=== PATIENT | female | born 1980 | race Caucasian/White ===

== ENCOUNTER 2017-01-19 16:48 | Emergency (ER) | payer OTHER ==
[~2017-01-19] VITALS: Wt 100.0 kg
[~2017-01-19 16:48] MED LIST: HTN MED; HYDR-3498 PO; HYDR-906 PO; ONDA4TAB14 PO; ZOF8 PO
[2017-01-19 18:00] LABS: URINE BLOOD (Dip) POC Negative (NEGATIVE)
[2017-01-19] MEDS ORDERED: IBUPROFEN 600 MG TAB PO ONE (18:00)
[2017-01-19] MEDS ORDERED: HYDROCODONE/APAP (5/325) TAB PO ONE (18:00)
--- NOTE | 2017-01-19 18:16 | RADRPT ---
PROCEDURE: CT head CLINICAL INDICATION: Headaches TECHNIQUE: Contiguous 2.5 mm axial images were obtained from the vertex to the skull base. No int ravenous contrast was administered. The calculated dose length product (DLP) = 601.98 mGy-cm. The CTDlvol = 42.06 mGy. One or more of the following dose reduction techniques were used: Automated e xposure control, adjustment of the mA and or KV according to patient size, or use of iterative recon struction technique. COMPARISON: None FINDINGS: There is no evidence of acute intracranial hemorrhage or acute territorial infarct. No mass or mass effect is seen on this noncontrast study. The ventricles and cisterns are normal in size and confi guration. The luo-white matter differentiation is within normal limits. The visualized paranasal sinuses are normally aerated. The bony calvarium is unremarkable IMPRESSION: Unremarkable unenhanced CT of the brain RPTAT: HH .Martín Wade MD, Date Time Electronically viewed and signed by .Martín Wade MD, MD on 01/19/2017 18:15 .W/
[2017-01-19] MEDS ORDERED: IBUP-1542 PO (18:25)
[2017-01-19] MEDS ORDERED: BUTA1CAP38 PO (18:25)
--- NOTE | 2017-01-19 18:28 | ERD ---
ER Documentation Chief Complaint Date/Time DATE: 01/19/17 TIME: 18:26 Chief Complaint R SIDED HEADACHE X 1 MONTH HPI This 36-year-old female complains of a headache for last month. Primarily on the right side in the temporal area and also on the upper neck area. She has a history of trauma. She states the pain started after the loss of her . She denies any fevers, visual changes, weakness, bowel or bladder incontinence, trauma. ROS All systems reviewed and are negative except as per history of present illness. Medications Home Meds Active Scripts Gycosweuli-Zdwnqrvkrftto-Gpttkelg* (Fioricet*) 50-300-40 Mg Capsule, 1 CAP PO Q4H Y for PAIN, #18 CAP Prov:BHARATI IVERSON MD 01/19/17 Ibuprofen* (Motrin*) 600 Mg Tab, 600 MG PO Q6, #20 TAB Prov:BHARATI IVERSON MD 01/19/17 Hydrocodone/Acetaminophen ([place] 5-325 Tablet) 1 Each Tablet, 1 EACH PO Q4, #7 TAB Prov:DENNY CULVER PA-C 09/25/16 Ondansetron (Ondansetron Odt) 4 Mg Tab.rapdis, 4 MG PO Q6H Y for NAUSEA AND/OR VOMITING, #14 TAB Prov:DENNY CULVER PA-C 09/25/16 Hydrocodone Bit-Acetaminophen* ([place]*) 5-325 Mg Tab, 1 TAB PO Q6 Y for PAIN, # 7 TAB Prov:BRYCE SORIA PA-C 04/22/15 Ondansetron Hcl* (Zofran* ODT) 8 mg -ODT Tab.disper, 8 MG PO Q6 Y for NAUSEA AND /OR VOMITING, #10 TAB Prov:BRYCE SORIA PA-C 04/22/15 Reported Medications [Htn Med] No Conflict Check 06/25/11 Allergies Allergies: Coded Allergies: No Known Allergy (Verified , 09/25/16) PMhx/Soc History of Surgery: Yes (MANJU) Hx Miscellaneous Medical Probl: No (DENIES PMH) Hx Alcohol Use: No Hx Substance Use: No Hx Tobacco Use: No Physical Exam Vitals Vital Signs Date Time Temp Pulse Resp B/P Pulse Ox O2 Delivery O2 Flow Rate FiO2 01/19/17 16:50 98.0 111 18 161/101 99 Physical Exam Const: [] Alert, [id number]. Head: Atraumatic. There is reproducible headache primarily on the right side of the face and right hoahaoism. There is no pulsatile masses. Eyes: Normal Conjunctiva ENT: Normal External Ears, Nose and Mouth. Neck: Full range of motion..~ No meningismus.. There is tenderness in the right C2-C3 paraspinous muscles. Resp: Clear to auscultation bilaterally Cardio: Regular rate and rhythm, no murmurs Abd: Soft, non tender, non distended. Normal bowel sounds Skin: No petechiae or rashes Back: No midline or flank tenderness Ext: No cyanosis, or edema Neur: Awake and alert. Eyes are PERRLA and extraocular movements intact. No appreciable focal neurologic deficits. Normal gait. Psych: Normal Mood and Affect Results 24 hrs Laboratory Tests Test 01/19/17 18:03 Bedside Urine Blood Negative Bedside Urine Glucose (UA) Negative Bedside Urine Ketones (LAB) Negative Bedside Urine Leukocyte Esterase (L Negative Bedside Urine Nitrite (LAB) Negative Bedside Urine Protein (LAB) Negative Bedside Urine pH (LAB) 5.0 Current Medications Medications (Trade) Dose Ordered Sig/Rell Route PRN Reason Start Time Stop Time Status Last Admin Dose Admin Acetaminophen/ Hydrocodone Bitart ([place] (5/325)) 1 tab ONCE ONCE PO 01/19/17 18:00 01/19/17 18:01 DC 01/19/17 17:55 Ibuprofen (Motrin) 600 mg ONCE ONCE PO 01/19/17 18:00 01/19/17 18:01 DC 01/19/17 17:55 Procedures/MDM Given the headache of uncertain etiology CT brain was performed which is read as normal by the radiologist. Patient was given [place] 5 mg of mouth and ibuprofen. Patient has headache of uncertain etiology without signs or symptoms to suggest internal bleeding, mass-effect, meningitis, temporal arteritis, additional causes of headache. She will treated the course of Fioricet and ibuprofen and further observation at home and instructed to follow- up with primary care doctor. The patient was stable with no new complaints during the ER course. Clinically, there is no current evidence to suggest meningitis, sepsis, acute abdomen, pneumonia, acute coronary syndrome, pulmonary embolism, or any other emergent condition appearing to require further evaluation or hospitalization. The patient should certainly return for any new or worsening symptoms per the aftercare instructions. They should otherwise follow-up with her primary care doctor for reevaluation this week. Departure Diagnosis: Primary Impression: Headache Headache type: unspecified Headache chronicity pattern: unspecified pattern Intractability: not intractable Qualified Code: R51 - Nonintractable headache, unspecified chronicity pattern, unspecified headache type Condition: Stable Patient Instructions: Headache, Unspecified Referrals: [facility] YOU HAVE RECEIVED A MEDICAL SCREENING EXAM AND THE RESULTS INDICATE THAT YOU DO NOT HAVE A CONDITION THAT REQUIRES URGENT TREATMENT IN THE EMERGENCY DEPARTMENT. FURTHER EVALUATION AND TREATMENT OF YOUR CONDITION CAN WAIT UNTIL YOU ARE SEEN IN YOUR DOCTORS OFFICE WITHIN THE NEXT 1-2 DAYS. IT IS YOUR RESPONSIBILITY TO MAKE AN APPOINTMENT FOR FOLOW-UP CARE. IF YOU HAVE A PRIMARY DOCTOR --you should call your primary doctor and schedule an appointment IF YOU DO NOT HAVE A PRIMARY DOCTOR YOU CAN CALL OUR PHYSICIAN REFERRAL HOTLINE AT IF YOU CAN NOT AFFORD TO SEE A PHYSICIAN YOU CAN CHOSE FROM THE FOLLOWING FORMERLY [facility] [address] [facility]. [facility] [address] [facility] [address] [facility] [address] [facility] [facility] [address] [facility]. [facility] [address]. [facility]. [address] Additional Instructions: CT read as normal. Suspect tension headache. Recheck with primary doctor possibly neurologist for persistent headaches. Recheck otherwise for fevers, new or worsening symptoms. BHARATI IVERSON MD Jan 19, 2017 18:28
[2017-01-19 19:58] VITALS: BP 172/108; PULSE 89; RESP 20; TEMP 98.4
== END 2017-01-19 21:06 | disposition home or self-care (01) ==
LOC: FTE 16:48
DX: R51 Headache (principal)
CPT/HCPCS: 70450; 81003; Z7502; Z7610

== ENCOUNTER 2017-10-29 00:16 | Emergency (ER) | payer OTHER ==
[~2017-10-29] VITALS: Ht 152.4 cm; Wt 85.0 kg
[~2017-10-29 00:16] MED LIST changes: +BUTA1CAP38 PO; +IBUP-1542 PO
[2017-10-29 00:18] VITALS: Ht 152.4 cm; Wt 85.0 kg
[2017-10-29] MEDS ORDERED: HYDROmorphONE 1 MG/ML SYG IM STA (01:10)
--- NOTE | 2017-10-29 01:55 | RADRPT ---
PROCEDURE: XR Left Knee. CLINICAL INDICATION: 78 of pain with standing TECHNIQUE: Three views of the left knee are available for review. COMPARISON: None available FINDINGS: There is no fracture. Joint relationships are maintained. Patella is unremarkable. Bone mineraliza tion is within normal limits. Soft tissues are unremarkable. IMPRESSION: 1. Unremarkable left knee x-ray series. 2. No acute fracture or dislocation is seen. RPTAT: [facility]VK .Aaron Lozano MD, MD Date Time Electronically viewed and signed by .Aaron Lozano MD, on 10/29/2017 01:55 .K/
[2017-10-29] MEDS ORDERED: HYDR-906 PO (02:21)
[2017-10-29] MEDS ORDERED: IBUP-1542 PO (02:21)
--- NOTE | 2017-10-29 02:22 | ERD ---
ER Documentation Chief Complaint Chief Complaint Pt felt "pop" in L knee now unable to bear weight or bend HPI 37-year-old female presenting with left knee pain with acute onset. She states she was sitting on the curb and had been feeling some left knee pain today. When she stood up from the seated position, she felt a pop in her left knee and was unable to bear weight after this. She states the pain is aching, sharp, in the center of her knee, worse with trying to bend her knee. No associated numbness, tingling, or weakness. ROS All systems reviewed and are negative except as per history of present illness. Medications Home Meds Active Scripts Hydrocodone/Acetaminophen ([place] 5-325 Tablet) 1 Each Tablet, 1 TAB PO Q6H Y for PAIN, #7 TAB Prov:CARON ELLIS MD 10/29/17 Ibuprofen* (Motrin*) 600 Mg Tab, 600 MG PO Q6H Y for PAIN AND OR ELEVATED TEMP, #30 TAB Prov:CARON ELLIS MD 10/29/17 Coicpoewlh-Fbjwcwqmsajei-Ubyezvfj* (Fioricet*) 50-300-40 Mg Capsule, 1 CAP PO Q4H Y for PAIN, #18 CAP Prov:BHARATI IVERSON MD 01/19/17 Ibuprofen* (Motrin*) 600 Mg Tab, 600 MG PO Q6, #20 TAB Prov:BHARATI IVERSON MD 01/19/17 Hydrocodone/Acetaminophen ([place] 5-325 Tablet) 1 Each Tablet, 1 EACH PO Q4, #7 TAB Prov:DENNY CULVER PA-C 09/25/16 Ondansetron (Ondansetron Odt) 4 Mg Tab.rapdis, 4 MG PO Q6H Y for NAUSEA AND/OR VOMITING, #14 TAB Prov:DENNY CULVER PA-C 09/25/16 Hydrocodone Bit-Acetaminophen* ([place]*) 5-325 Mg Tab, 1 TAB PO Q6 Y for PAIN, # 7 TAB Prov:BRYCE SORIA PA-C 04/22/15 Ondansetron Hcl* (Zofran* ODT) 8 mg -ODT Tab.disper, 8 MG PO Q6 Y for NAUSEA AND /OR VOMITING, #10 TAB Prov:BRYCE SORIA PA-C 04/22/15 Reported Medications [Htn Med] No Conflict Check 06/25/11 Allergies Allergies: Coded Allergies: No Known Allergy (Verified , 09/25/16) PMhx/Soc History of Surgery: Yes (MANJU) Hx Miscellaneous Medical Probl: Yes (HTN, hypothyroidism) Hx Alcohol Use: No Hx Substance Use: No Hx Tobacco Use: No Smoking Status: Never smoker FmHx Family History: No diabetes Physical Exam Vitals Vital Signs Date Time Temp Pulse Resp B/P Pulse Ox O2 Delivery O2 Flow Rate FiO2 10/29/17 02:54 98.4 78 16 134/78 99 Room Air 10/29/17 00:18 98.3 96 24 161/103 99 Physical Exam Const:. well appearing, mild distress secondary to pain Head: Atraumatic Resp: Clear to auscultation bilaterally Cardio: Regular rate and rhythm, no murmurs Abd: Soft, non tender, non distended. Normal bowel sounds Skin: No petechiae or rashes Back: No midline or flank tenderness Ext: No cyanosis, or edema. Left knee with diffuse tenderness of the joint without any obvious effusion or deformity. Limited range of motion at the knee secondary to severe pain. 2+ DP and PT pulses distally. Hip, ankle, and foot exam normal. Neur: Awake and alert. Antalgic gait Psych: Normal Mood and Affect Results 24 hrs Current Medications Medications (Trade) Dose Ordered Sig/Rell Route PRN Reason Start Time Stop Time Status Last Admin Dose Admin Hydromorphone HCl (Dilaudid) 1 mg ONCE STAT IM 10/29/17 01:10 10/29/17 01:12 DC 10/29/17 01:16 Procedures/MDM X-ray of left knee shows no acute abnormalities MDM Patient is presenting with acute onset left knee pain. Exam is limited secondary to her pain. There is no obvious deformities. X-ray does not show evidence of dislocation or acute fracture. I do suspect possible ligamentous injury. I did recommend an outpatient MRI which does not need to be done today. Patient was placed in a knee immobilizer and given crutches. She is weightbearing as tolerated. She was prescribed [place] for severe pain. Patient is agreeable to the discharge plan. Return precautions discussed. Departure Diagnosis: Primary Impression: Knee injury Encounter type: initial encounter Laterality: left Qualified Code: S89.92XA - Injury of left knee, initial encounter Condition: Stable Patient Instructions: Knee Pain, Uncertain Cause Referrals: NO PRIMARY,CARE PHYSICIAN (PCP) Additional Instructions: Make an appointment with your primary care doctor within the next week. You will likely need an outpatient MRI if your pain continues. You can put weight on your knee as tolerated in the meantime. CARON ELLIS MD Oct 29, 2017 02:22
[2017-10-29 02:54] VITALS: BP 134/78; PULSE 78; RESP 16; TEMP 98.4
== END 2017-10-29 02:56 | disposition home or self-care (01) ==
LOC: E/R 00:16
DX: S89.92XA Unspecified injury of left lower leg, initial encounter (principal); I10 Essential (primary) hypertension; E03.9 Hypothyroidism, unspecified; X50.9XXA Other and unspecified overexertion or strenuous movements or postures, initial encounter; Y92.9 Unspecified place or not applicable
CPT/HCPCS: 29505; 73562; 96372; J1170; Z7502

== ENCOUNTER 2018-04-28 11:48 | Emergency (ER) | END 2018-04-28 17:52 | disposition home or self-care (01) ==

== ENCOUNTER 2018-05-03 12:46 | Emergency (ER) | END 2018-05-03 15:44 | disposition home or self-care (01) ==

== ENCOUNTER 2018-09-16 20:20 | Emergency (ER) | END 2018-09-16 23:52 | disposition home or self-care (01) ==

== ENCOUNTER 2019-01-19 18:38 | Emergency (ER) | payer OTHER ==
[~2019-01-19] VITALS: Ht 152.4 cm; Wt 102.3 kg
[~2019-01-19 18:38] MED LIST changes: +AMLO-147 PO; -BUTA1CAP38 PO; +DIAZ5TAB PO; -HTN MED; -HYDR-3498 PO; +HYDR-3980 PO; -HYDR-906 PO; -IBUP-1542 PO; +IBUP800T48 PO; +LEVO88TA3 PO; +LOSA100T15 PO; -ZOF8 PO
[2019-01-19 18:45] VITALS: Ht 152.4 cm; Wt 102.3 kg
--- NOTE | 2019-01-19 19:08 | ERD ---
ER Documentation Chief Complaint Chief Complaint BIB RA FROM WORK W/ C/O DIZZINESS, RT ARM NUMBNESS AND TINGLING, HX TIA HPI 38-year-old female history of hypertension, intracerebral aneurysm and TIA's presents to the ED complaining of acute onset of dizziness and right arm numbness and while at work. Denies headache, visual changes or focal weakness. No facial droop, difficulty speaking or leg weakness or numbness. No chest pain, palpitations or shortness of breath. No abdominal pain, nausea vomiting. No fevers or chills. ROS All systems reviewed and are negative except as per history of present illness. Medications Home Meds Reported Medications Levothyroxine Sodium* (Levothyroxine Sodium*) 88 Mcg Tablet, 88 MCG PO BEFORE BREAKFAST, #30 TAB 01/19/19 Amlodipine Besylate* (Norvasc*) 5 Mg Tablet, 5 MG PO DAILY, TAB 01/19/19 Discontinued Reported Medications Amlodipine Besylate* (Amlodipine Besylate*) 10 Mg Tablet, 10 MG PO DAILY, #30 TAB 09/16/18 Losartan Potassium* (Losartan Potassium*) 100 Mg Tablet, 100 MG PO DAILY, TAB 04/28/18 Levothyroxine Sodium* (Levothyroxine Sodium*) 88 Mcg Tablet, 88 MCG PO BEFORE BREAKFAST, #30 TAB 04/28/18 Discontinued Scripts Ibuprofen* (Motrin*) 800 Mg Tab, 800 MG PO Q6H PRN for PAIN AND OR ELEVATED TEMP, #30 TAB Prov:JAZMYNE REDDING MD 09/16/18 Ondansetron (Ondansetron Odt) 4 Mg Tab.rapdis, 4 MG PO Q6H PRN for NAUSEA AND/OR VOMITING, #10 TAB Prov:JAZMYNE REDDING MD 09/16/18 Diazepam* (Valium*) 5 Mg Tablet, 5 MG PO Q8 PRN for MUSCLE SPASMS, #10 TAB Prov:JAZMYNE REDDING MD 09/16/18 Hydrocodone/Acetaminophen ([place] 10-325 Tablet) 1 Each Tablet, 1 TAB PO Q6H PRN for PAIN, #7 TAB Prov:JAZMYNE REDDING MD 09/16/18 Allergies Allergies: Coded Allergies: No Known Allergy (Verified , 01/19/19) PMhx/Soc Reviewed in chart. As per HPI. History of Surgery: Yes (MANJU) Anesthesia Reaction: No Hx Neurological Disorder: Yes (CVA) Hx Respiratory Disorders: No Hx Cardiac Disorders: Yes (HTN) Hx Miscellaneous Medical Probl: Yes (hypothyroidism, DM) Hx Alcohol Use: No Hx Substance Use: No Hx Tobacco Use: No FmHx No stroke, subarachnoid hemorrhage or cancer Physical Exam Vitals Vital Signs Date Temp Pulse Resp B/P (MAP) Pulse Ox O2 O2 Flow FiO2 Time Delivery Rate 01/19/19 97.9 88 17 147/91 100 Room Air 23:55 (109) 01/19/19 78 11 165/108 100 Room Air 22:26 (127) 01/19/19 98.3 83 15 149/103 100 18:45 (118) Physical Exam Const: Moderate distress, anxious. Head: Atraumatic Eyes: Normal Conjunctiva. Pupils equal reactive to light, extraocular movements are intact. No gaze preference. No papilledema appreciated. ENT: Normal External Ears, Nose and Mouth. Neck: Full range of motion. Carotids 2+ bilaterally without bruits. Resp: Clear to auscultation bilaterally Cardio: Regular rate and rhythm, no murmurs Abd: Soft, obese, non tender, non distended. No masses. No rebound or guarding. Normal bowel sounds Skin: No petechiae or rashes Back: No midline or flank tenderness Ext: No cyanosis, or edema. Pulses 4+ in all extremities. Neur: Awake and alert. Oriented. Cranial nerves II through XII are grossly intact. Visual peters are normal. Decreased sensation right upper extremity below the shoulder. Difficulty raising her right arm no pronator drift when assisted with raising and complains of crampy pain in the triceps muscle. Motor strength in all upper extremities is 5/5. Plantar reflexes are downgoing. Psych: Patient appears anxious but not depressed. Result Diagram: 01/19/19191401/19/191914 Results 24 hrs Laboratory Tests Test 01/19/19 19:15 White Blood Count 9.4 10^3/ul Red Blood Count 4.19 10^6/ul Hemoglobin 12.8 g/dl Hematocrit 37.7 % Mean Corpuscular Volume 90.0 fl Mean Corpuscular Hemoglobin 30.5 pg Mean Corpuscular Hemoglobin Concent 34.0 g/dl Red Cell Distribution Width 11.9 % Platelet Count 357 10^3/UL Mean Platelet Volume 8.9 fl Immature Granulocytes % 1.000 % Neutrophils % 72.1 % Lymphocytes % 21.4 % Monocytes % 4.5 % Eosinophils % 0.7 % Basophils % 0.3 % Nucleated Red Blood Cells % 0.0 /100WBC Immature Granulocytes # 0.090 10^3/ul Neutrophils # 6.8 10^3/ul Lymphocytes # 2.0 10^3/ul Monocytes # 0.4 10^3/ul Eosinophils # 0.1 10^3/ul Basophils # 0.0 10^3/ul Nucleated Red Blood Cells # 0.0 10^3/ul Prothrombin Time 11.9 Sec Prothrombin Time Ratio 0.9 INR International Normalized Ratio 0.87 Activated Partial Thromboplast Time 26.6 Sec Sodium Level 140 mmol/L Potassium Level 4.2 mmol/L Chloride Level 104 mmol/L Carbon Dioxide Level 26 mmol/L Anion Gap 10 Blood Urea Nitrogen 12 mg/dl Creatinine 0.62 mg/dl Est Glomerular Filtrat Rate mL/min > 60 mL/min Glucose Level 110 mg/dl Calcium Level 9.6 mg/dl Total Bilirubin 0.6 mg/dl Direct Bilirubin 0.00 mg/dl Indirect Bilirubin 0.6 mg/dl Aspartate Amino Transf (AST/SGOT) 23 IU/L Alanine Aminotransferase (ALT/SGPT) 25 IU/L Alkaline Phosphatase 64 IU/L Total Protein 7.5 g/dl Albumin 4.3 g/dl Globulin 3.20 g/dl Albumin/Globulin Ratio 1.34 Current Medications Medications Dose Sig/Rell Start Time Status Last (Trade) Ordered Route PRN Stop Time Admin Dose Reason Admin IV Flush 10 ml STK-MED 01/19/19 DC (NS 10 ml) ONCE .ROUTE 19:54 01/19/19 19:55 Sodium 100 ml @ ud STK-MED 01/19/19 DC Chloride ONCE .ROUTE 19:54 01/19/19 19:55 Iohexol 100 ml @ ud STK-MED 01/19/19 DC ONCE .ROUTE 19:54 01/19/19 19:55 Procedures/MDM DOCUMENTS REVIEWED: ED nurse, prior ED, prior records EKG: Time: 1915. Sinus rhythm. Ventricular rate 77, normal FL and QRS intervals. No acute ST segment elevation or depression. No axis deviation or ectopy. My Interpretation: Normal EKG IMAGING: PROCEDURE: CT Brain without contrast. CLINICAL INDICATION: Acute neurologic symptoms TECHNIQUE: A CT of the brain was performed on a GE [employer] 64-slice CT scanner utilizing axial imaging from the skull base through the vertex without IV contrast. Multiplanar reformatted images were made. Images were reviewed on a PACS workstation. The CTDIvol is 39.46 mGy and the DLP is 694.23 mGycm. One or more the following dose reduction techniques were utilized: Automated exposure control, adjustment of mA/ or kV according to patient's size, or use of iterative reconstruction technique. DICOM images are available for review. COMPARISON: CT HEAD 04/03/2018 FINDINGS: There is no intracranial hemorrhage, mass effect, or midline shift. The ventricles and sulci are normal in size and configuration. The density of the brain is normal. There is good luo-white matter differentiation throughout the cerebral hemispheres. The visualized brainstem and cerebellum are unremarkable. No extra-axial fluid collection is seen. The visualized paranasal sinuses and osseous structures are grossly unremarkable. IMPRESSION: No evidence of acute intracranial pathology. The brain is normal in appearance. RPTAT:HAGL Physician Fernanda Date Time Electronically viewed and signed by Physician Fernanda on 01/19/2019 20:24 RL/ PROCEDURE: CTA head and neck CLINICAL INDICATION: 38 year-old female. Possible CVA. TECHNIQUE: The study was performed utilizing a multi-slice CT scanner. Pre and postcontrast high-resolution axial sections were obtained through the head and neck. Coronal and sagittal as well as maximal intensity projection reformations were obtained. 3-D images were made. NASCET criteria were utilized in measuring stenoses. One or more the following dose reduction techniques were utilized: Automated exposure control, adjustment of the mA/ or kV according to patient's size, or use of iterative reconstruction technique. DICOM images are available for review. DICOM images are available for review. The images were reviewed on a PACS workstation. The total CTDIvol is 36.71 mGy and the DLP is 701.99 mGy-cm. CONTRAST: 95 cc Omnipaque 350 IV COMPARISON: CT brain 01/19/2019 FINDINGS: CTA NECK: Aortic arch and great vessels: No arch aneurysm or dissection flap. The innominate, left common carotid and left subclavian arteries have separate origins from the aortic arch. No hemodynamically significant origin stenosis. Normal right common carotid artery origin. Anterior circulation: Contrast opacifies the left and right common, internal and external carotid arteries. No hemodynamically significant stenosis at the level of the carotid bifurcations or involving the internal carotid arteries. Right internal carotid artery measures 3.7 mm. Left internal carotid artery measures 3.9 mm. Posterior circulation: Contrast opacifies the left and right vertebral arteries. The right vertebral artery is dominant. No hemodynamically significant stenosis at the vertebral artery origins. No dissection flap identified. CTA BRAIN: Posterior circulation: Contrast opacifies the intradural vertebral arteries, right dominant. No basilar artery stenosis, intraluminal filling defect or basilar tip aneurysm. Contrast opacifies the left and right superior cerebellar and posterior cerebral arteries. Anterior circulation: Contrast opacifies the distal left and right internal ca rotid arteries, the anterior and middle cerebral arteries, the opercular and sylvian branches arising from the left and right middle cerebral arteries. The anterior communicating artery is not visualized. No posterior communicating arteries are identified. Short segmental 50% stenosis at the origin of the anterior right M2 branch. No intraluminal filling defect or abrupt vessel cutoff. 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 2.1 mm left para ophthalmic aneurysm. IMPRESSION: 1. No carotid bifurcation disease. 2. 3.1 mm right sided para ophthalmic aneurysm. 3. 2.1 mm left para ophthalmic aneurysm. 4. Short 50% segmental stenosis origin anterior right M2 branch. Critical results given to Dr. Dwyer at [facility] ED at 2047 hours P S T. RPTAT: HLRS Physician Rafael Date Time Electronically viewed and signed by Physician Rafael on 01/19/2019 20:49 RS/ PROCEDURE: MR Brain without contrast. CLINICAL INDICATION: Focal neurological deficit TECHNIQUE: MRI brain without contrast was performed on a high field MRI system. Sequences include sagittal T1, axial T1, FLAIR, T2, diffusion and coronal GRE weighted. No contrast material was utilized.. DICOM images are available. COMPARISON: CT brain, CT angio brain 01/19/2019, MRI brain 04/03/2018. . FINDINGS: There is mild generalized central and peripheral atrophy. There is no midline shift. There is a mild degree of supratentorial periventricular and subcortical white matter hyperintensities on FLAIR and T2-weighted images. There is no acute stroke on diffusion weighted images. There is no mass lesion. There is no intracranial hemorrhage or abnormal extra-axial fluid collection. Flow voids are noted in the major intracranial arteries. There is normal signal intensity in the major dural venous sinuses. Foramen magnum is unremarkable. Visualized paranasal sinuses are clear. IMPRESSION: 1. No acute stroke or hemorrhage. 2. Slight interval increase since 04/03/2018 of scattered white matter changes most commonly seen with small vessel disease from hypertension, vasculitis, complicated migraine headaches and collagen vascular disease. 3. Mild generalized volume loss for age. RPTAT: HMVK .Aaron Lozano MD, MD Date Time Electronically viewed and signed by .Aaron Lozano MD, on 01/19/2019 22:53 .K/ CALLS/CONSULTATIONS: Tele-neurology, Dr Parker. Observation Note: Time: 4 hours Family Hx: No Hypertension Evaluation: Multiple exams showed improving symptoms and no evidence of CVA or TIA. MEDICAL DECISION MAKIN-year-old female history of hypertension, intracerebral aneurysm and TIAs presents to the ED complaining of acute onset of right arm numbness. CBC to evaluate for leukocytosis, anemia and thrombocytosis is unremarkable. Chemistry reveals no evidence of renal insufficiency or electrolyte abnormalities. EKG is negative for ischemia or dysrhythmia. CT of the brain is negative for hemorrhage, infarct or mass. CT angios head and neck reveals bilateral paraophthalmic aneurysms and short 50% segmental stenosis of anterior right M2 branch. MRI of the brain is negative for ischemia. Patient had a previous admission to [facility] and reports carotid Dopplers and cardiac echo were negative sooner not repeated today. Tele-neurology consulted and agrees that the advanced imaging findings are incidental and not related to the patient's clinical presentation. No evidence of CVA or TIA. Symptoms resolved. Transient numbness of the right upper extremity of uncertain etiology. No actual weakness. Cervical radiculopathy is considered. Multiple sclerosis considered. No internuclear ophthalmoplegia. No evidence of vascular insufficiency or thoracic outlet syndrome. Patient with poorly controlled hypertension improved significantly without intervention. In the absence of signs of serious, acute disease patient is stable for discharge with precautionary instructions and outpatient follow-up as counseled. Though the patient's latest blood pressure was elevated (>120/80), the patient has a known history of hypertension and urged to pursue adjustment of their medical therapy within a week with their primary care physician. Please refer to the medication reconciliation form for the current list of hypertensive medications. Counseled patient regarding diagnostic workup, diagnosis and need for followup. Understands to return to ED if symptoms recur, worsen or any other concerns. Departure Diagnosis: Primary Impression: Right arm numbness Additional Impressions: Poorly-controlled hypertension Intracerebral aneurysm Condition: Stable YAN DWYER MD Jan 19, 2019 19:08
[2019-01-19] MEDS ORDERED: IOHEXOL 100 ML ONE (19:54)
[2019-01-19] MEDS ORDERED: SOD CHLORIDE 0.9% 100 ML ONE (19:54)
[2019-01-19] MEDS ORDERED: LEVO88TA3 PO (19:57)
[2019-01-19] MEDS ORDERED: AMLO5TAB4 PO (19:57)
--- NOTE | 2019-01-19 21:38 | CONS ---
Assessment/Plan Assessment/Plan Assessment/Plan 38 F PMH TIAs and cerebral aneurysms LKW uncertain with complaint of right arm numbness and shoulder pain. No weakness per local team. Patient complaining of shoulder pain in ED now. CTA done and showing right M2 stenosis approximately 50% as well as small 2mm opthalmic aneurysm. Question for [employer] regarding the significance of these radiographic findings. These radiographic findings would not cause patient's current symptoms of right arm numbness and shoulder pain. Further care per local Neurology team. Consultation Date/Type/Reason Admit Date/Time Type of Consult Neurology Date/Time of Note DATE: 01/19/19 TIME: 21:37 Exam/Review of Systems Exam Vitals Vital Signs Date Temp Pulse Resp B/P (MAP) Pulse Ox O2 O2 Flow FiO2 Time Delivery Rate 01/19/19 98.3 83 15 149/103 100 18:45 (118) Results Result Diagram: 01/19/19191401/19/191914 Results 24hrs Laboratory Tests Test 01/19/19 19:15 White Blood Count 9.4 Red Blood Count 4.19 L Hemoglobin 12.8 Hematocrit 37.7 Mean Corpuscular Volume 90.0 Mean Corpuscular Hemoglobin 30.5 Mean Corpuscular Hemoglobin Concent 34.0 Red Cell Distribution Width 11.9 Platelet Count 357 Mean Platelet Volume 8.9 Immature Granulocytes % 1.000 H Neutrophils % 72.1 Lymphocytes % 21.4 Monocytes % 4.5 Eosinophils % 0.7 Basophils % 0.3 Nucleated Red Blood Cells % 0.0 Immature Granulocytes # 0.090 H Neutrophils # 6.8 Lymphocytes # 2.0 Monocytes # 0.4 Eosinophils # 0.1 Basophils # 0.0 Nucleated Red Blood Cells # 0.0 Prothrombin Time 11.9 Prothrombin Time Ratio 0.9 INR International Normalized Ratio 0.87 Activated Partial Thromboplast Time 26.6 Sodium Level 140 Potassium Level 4.2 Chloride Level 104 Carbon Dioxide Level 26 Anion Gap 10 Blood Urea Nitrogen 12 Creatinine 0.62 Est Glomerular Filtrat Rate mL/min > 60 Glucose Level 110 Calcium Level 9.6 Total Bilirubin 0.6 Direct Bilirubin 0.00 Indirect Bilirubin 0.6 Aspartate Amino Transf (AST/SGOT) 23 Alanine Aminotransferase (ALT/SGPT) 25 Alkaline Phosphatase 64 Total Protein 7.5 Albumin 4.3 Globulin 3.20 Albumin/Globulin Ratio 1.34 Past Medical History Home Meds Reported Medications Levothyroxine Sodium* (Levothyroxine Sodium*) 88 Mcg Tablet, 88 MCG PO BEFORE BREAKFAST, #30 TAB 01/19/19 Amlodipine Besylate* (Norvasc*) 5 Mg Tablet, 5 MG PO DAILY, TAB 01/19/19 Discontinued Reported Medications Amlodipine Besylate* (Amlodipine Besylate*) 10 Mg Tablet, 10 MG PO DAILY, #30 TAB 09/16/18 Losartan Potassium* (Losartan Potassium*) 100 Mg Tablet, 100 MG PO DAILY, TAB 04/28/18 Levothyroxine Sodium* (Levothyroxine Sodium*) 88 Mcg Tablet, 88 MCG PO BEFORE BREAKFAST, #30 TAB 04/28/18 Discontinued Scripts Ibuprofen* (Motrin*) 800 Mg Tab, 800 MG PO Q6H PRN for PAIN AND OR ELEVATED TEMP, #30 TAB Prov:JAZMYNE REDDING MD 09/16/18 Ondansetron (Ondansetron Odt) 4 Mg Tab.rapdis, 4 MG PO Q6H PRN for NAUSEA AND/OR VOMITING, #10 TAB Prov:JAZMYNE REDDING MD 09/16/18 Diazepam* (Valium*) 5 Mg Tablet, 5 MG PO Q8 PRN for MUSCLE SPASMS, #10 TAB Prov:JAZMYNE REDDING MD 09/16/18 Hydrocodone/Acetaminophen ([place] 10-325 Tablet) 1 Each Tablet, 1 TAB PO Q6H PRN for PAIN, #7 TAB Prov:JAZMYNE REDDING MD 09/16/18 Allergies: Coded Allergies: No Known Allergy (Verified , 01/19/19) Social History Smoking Status: Never smoker MILTON MARSH MD Jan 19, 2019 21:38
[2019-01-19 23:55] VITALS: BP 147/91; PULSE 88; RESP 17
== END 2019-01-19 23:55 | disposition home or self-care (01) ==
LOC: E/R 18:38
DX: I10 Essential (primary) hypertension (principal); R20.0 Anesthesia of skin; E03.9 Hypothyroidism, unspecified; E11.9 Type 2 diabetes mellitus without complications; Z86.73 Personal history of transient ischemic attack (TIA), and cerebral infarction without residual deficits
CPT/HCPCS: 70450; 70496; 70498; 70551; 71045; 80053; 85025; 85610; 85730; 93005; Q9967; Z7502; Z7610

== ENCOUNTER 2019-03-31 20:32 | Emergency (ER) | payer OTHER ==
[~2019-03-31] VITALS: Ht 152.4 cm; Wt 122.1 kg
[~2019-03-31 20:32] MED LIST changes: -AMLO-147 PO; +AMLO5TAB4 PO; -DIAZ5TAB PO; -HYDR-3980 PO; -IBUP800T48 PO; -LOSA100T15 PO; -ONDA4TAB14 PO
[2019-03-31 20:37] VITALS: Ht 152.4 cm; Wt 122.1 kg
--- NOTE | 2019-04-01 00:21 | ERD ---
ER Documentation Chief Complaint Chief Complaint BIB RA for AP x1 hour w/ vomiting, no diarrhea HPI This is a 39-year-old female presents here by ambulance in the emergency department with complaints of lower abdominal pain started an hour. Patient stated that she has never had this pain before. LMP: 2 months ago. G0, . Denies headache, head injury, loss of consciousness, dizziness, neck pain, neck stiffness, throat pain, difficulty swallowing, difficulty breathing lying flat, shoulder pain, chest pain, back pain, abdominal pain, nausea, vomiting, constipa tion, diarrhea, urinary symptoms, or possibility being , loss of bowel and bladder control, trauma, injury, falls, difficulty walking due to pain, numbness or tingling sensation, calf pain, recent travel, recent major surgery in the last 3 weeks, calf pain, recent long travel, recent exposure to any illness, recent antibiotic use in the last 3 months, fever, chills, seizures. Past medical history: Hypothyroidism. Hypertension. Medication: Levothyroxine. Amlodipine. Surgical history: Social: Denies smoking, use of alcoholic beverages, use of illegal drugs. ROS All systems reviewed and are negative except as per history of present illness. Medications Home Meds Active Scripts Ondansetron Hcl* (Zofran*) 4 Mg Tablet, 4 MG PO Q8H PRN for NAUSEA AND/OR VOMITING, #30 TAB Prov:OSCAR CRISTINA F 04/01/19 Naproxen* (Naprosyn*) 500 Mg Tablet, 500 MG PO BID PRN for PAIN AND/OR INFLAMMATION, #30 TAB Prov:OSCAR CRISTINA F 04/01/19 Reported Medications Levothyroxine Sodium* (Levothyroxine Sodium*) 88 Mcg Tablet, 88 MCG PO BEFORE BREAKFAST, #30 TAB 01/19/19 Amlodipine Besylate* (Norvasc*) 5 Mg Tablet, 5 MG PO DAILY, TAB 01/19/19 Allergies Allergies: Coded Allergies: No Known Allergy (Verified , 01/19/19) PMhx/Soc History of Surgery: Yes (MANJU) Anesthesia Reaction: No Hx Neurological Disorder: Yes (CVA, TIA) Hx Respiratory Disorders: No Hx Cardiac Disorders: Yes (htn) Hx Miscellaneous Medical Probl: Yes (hypothyroid) Hx Alcohol Use: No Hx Substance Use: No Hx Tobacco Use: No Smoking Status: Never smoker Physical Exam Vitals Physical Exam Const: No acute distress Head: Atraumatic Eyes: Normal Conjunctiva ENT: Normal External Ears, Nose and Mouth. Neck: Full range of motion. No meningismus. Resp: Clear to auscultation bilaterally Cardio: Regular rate and rhythm, no murmurs Abd: Soft, non tender, non distended. Normal bowel sounds. Has lower abdominal tenderness to palpation. Has difficulty walking due to pain. Developed lower abdominal pain after trying to jump once. Skin: No petechiae or rashes. No vesicular lesions. Color appears normal for ethnicity. Back: No midline or flank tenderness. No CVA tenderness. Ext: No cyanosis, or edema Neur: Awake and alert. No neurological deficit. Psych: Normal Mood and Affect Results 24 hrs Laboratory Tests Test 04/01/19 00:46 04/01/19 00:53 White Blood Count 9.0 10^3/ul Red Blood Count 4.27 10^6/ul Hemoglobin 13.0 g/dl Hematocrit 38.8 % Mean Corpuscular Volume 90.9 fl Mean Corpuscular Hemoglobin 30.4 pg Mean Corpuscular Hemoglobin Concent 33.5 g/dl Red Cell Distribution Width 12.1 % Platelet Count 369 10^3/UL Mean Platelet Volume 8.7 fl Immature Granulocytes % 0.600 % Neutrophils % 62.8 % Lymphocytes % 30.2 % Monocytes % 5.1 % Eosinophils % 1.0 % Basophils % 0.3 % Nucleated Red Blood Cells % 0.0 /100WBC Immature Granulocytes # 0.050 10^3/ul Neutrophils # 5.6 10^3/ul Lymphocytes # 2.7 10^3/ul Monocytes # 0.5 10^3/ul Eosinophils # 0.1 10^3/ul Basophils # 0.0 10^3/ul Nucleated Red Blood Cells # 0.0 10^3/ul Urine Color YELLOW Urine Clarity SLIGHTLY CLOUDY Urine pH 5.0 Urine Specific [place] 1.029 Urine Ketones TRACE mg/dL Urine Nitrite NEGATIVE mg/dL Urine Bilirubin NEGATIVE mg/dL Urine Urobilinogen 1+ mg/dL Urine Leukocyte Esterase NEGATIVE [place]/ul Urine Microscopic RBC 1 /HPF Urine Microscopic WBC 1 /HPF Urine Squamous Epithelial Cells FEW /HPF Urine Bacteria FEW /HPF Urine Mucus MODERATE /HPF Urine Hemoglobin NEGATIVE mg/dL Urine Glucose NEGATIVE mg/dL Urine Total Protein NEGATIVE mg/dl Sodium Level 140 mmol/L Potassium Level 4.1 mmol/L Chloride Level 105 mmol/L Carbon Dioxide Level 29 mmol/L Anion Gap 6 Blood Urea Nitrogen 16 mg/dl Creatinine 0.70 mg/dl Est Glomerular Filtrat Rate mL/min > 60 mL/min Glucose Level 112 mg/dl Calcium Level 9.1 mg/dl Total Bilirubin 0.6 mg/dl Direct Bilirubin 0.00 mg/dl Indirect Bilirubin 0.6 mg/dl Aspartate Amino Transf (AST/SGOT) 22 IU/L Alanine Aminotransferase (ALT/SGPT) 28 IU/L Alkaline Phosphatase 69 IU/L Total Protein 7.3 g/dl Albumin 4.3 g/dl Globulin 3.00 g/dl Albumin/Globulin Ratio 1.43 Amylase Level 60 U/L Lipase 79 U/L POC Beta HCG, Qualitative NEGATIVE Current Medications Medications Dose Sig/Rell Start Time Status Last (Trade) Ordered Route PRN Stop Time Admin Dose Reason Admin Morphine 4 mg ONCE STAT 04/01/19 DC 04/01/19 Sulfate IV 00:22 01:06 (morphine) 04/01/19 00:26 Ondansetron 4 mg ONCE STAT 04/01/19 DC 04/01/19 HCl (Zofran IV 00:22 01:06 Inj) 04/01/19 00:26 Procedures/MDM Diagnostic tests: POC urine : Negative. Urinalysis: Reviewed. Culture urine: Sent. Blood works: Reviewed. CT of the abdomen and pelvis with IV contrast: 1. Status post cholecystectomy. 2. No CT evidence for obstructive uropathy or renal calculi. 3. Retained stool within the proximal colon without obstruction. 4. No CT evidence for appendicitis. 5. Prominent left ovary which may represent an underlying cyst however a pelvic ultrasound is suggested to evaluate for possible ovarian torsion. Pelvic ultrasound: Slightly enlarged left ovary with a simple cyst. Treatment: Saline lock. Normal saline IV bolus. Morphine IV. Zofran IV. Re-evaluation: Denies abdominal pain. No abdominal tenderness. No signs of hemorrhage. Differential diagnosis I have low suspicion for sepsis, severe or serious bacterial infection, cholecystitis, pancreatitis, diverticulitis, there is colitis with abscess, appendicitis, ruptured appendix, Final diagnosis: Ovarian cyst. Prescription: Naprosyn. Zofran. Follow-up with PCP in the next 24-48 hours. Follow-up with [facility] in the next 3 to 5 days. Come back here in the emergency department for any new symptoms or any worsening symptoms. All questions and concerns were answered. Patient and family members verbalized understanding and agreed with plan of care. Hemodynamically stable on discharge. Departure Diagnosis: Primary Impression: Abdominal pain Additional Impression: Ovarian cyst Condition: Stable Additional Instructions: Follow-up with PCP in the next 24-48 hours. Follow-up with [facility] in the next 3 to 5 days. Come back here in the emergency department for any new symptoms or any worsening symptoms. OSCAR CRISTINA April 01, 2019 00:21
[2019-04-01] MEDS ORDERED: ONDANSETRON 4 MG INJ IV STA (00:22)
[2019-04-01] MEDS ORDERED: morphine 4 MG/ML VIAL IV STA (00:22)
[2019-04-01] MEDS ORDERED: NAPR-985 PO (06:33)
[2019-04-01] MEDS ORDERED: ONDA4TAB8 PO (06:34)
[2019-04-01 06:57] VITALS: BP 147/80; PULSE 79; RESP 16
== END 2019-04-01 06:58 | disposition home or self-care (01) ==
LOC: FTE 20:32
DX: N83.202 Unspecified ovarian cyst, left side (principal); I10 Essential (primary) hypertension; E03.9 Hypothyroidism, unspecified; R10.2 Pelvic and perineal pain; Z86.73 Personal history of transient ischemic attack (TIA), and cerebral infarction without residual deficits
CPT/HCPCS: 74176; 76830; 76856; 80053; 81001; 81025; 82150; 83690; 85025; 87086; J2270; J2405; 81003; 96374; 96375